=== PATIENT | male | born 1965 | race Caucasian/White ===

== ENCOUNTER → 2018-05-14 | Outpatient (CLI) | payer OTHER | LOC: M.ULTRA 16:00 | DX: M79.605 Pain in left leg (principal); M79.89 Other specified soft tissue disorders; R22.42 Localized swelling, mass and lump, left lower limb ==

== ENCOUNTER → 2018-05-20 | Outpatient (CLI) | payer OTHER | LOC: M.RAD 05-15 12:25 → M.ULTRA 13:00 | DX: I70.213 Atherosclerosis of native arteries of extremities with intermittent claudication, bilateral legs (principal); M54.16 Radiculopathy, lumbar region; M79.604 Pain in right leg ==

== ENCOUNTER → 2018-05-29 | Outpatient (CLI) | payer OTHER | LOC: M.MRI 10:53 | DX: M25.552 Pain in left hip (principal); M48.061 Spinal stenosis, lumbar region without neurogenic claudication; M54.5 Low back pain; M54.10 Radiculopathy, site unspecified ==

== ENCOUNTER → 2018-06-03 | Outpatient (CLI) | payer OTHER | LOC: M.RAD 10:35 | DX: M25.552 Pain in left hip (principal) ==

== ENCOUNTER 2019-08-15 07:44 | Emergency (ER) | payer OTHER, MEDICARE ==
[~2019-08-15] VITALS: Ht 167.6 cm; Wt 59.0 kg
[2019-08-15] MEDS ORDERED: INSULIN (07:58)
[2019-08-15] MEDS ORDERED: TRIAMCINOLONE A80 G2 TOP (08:42)
[2019-08-15] MEDS ORDERED: PREDNISONE 20 M20 M1 PO (08:42)
[2019-08-15 08:50] VITALS: BP 131/80
== END 2019-08-15 08:55 | disposition home or self-care (01) ==
LOC: M.ERS 07:44
DX: L25.3 Unspecified contact dermatitis due to other chemical products (principal); T54.91XA Toxic effect of unspecified corrosive substance, accidental (unintentional), initial encounter; Y92.89 Other specified places as the place of occurrence of the external cause; M25.532 Pain in left wrist; M25.531 Pain in right wrist; E11.9 Type 2 diabetes mellitus without complications